=== PATIENT | female | born 1970 | race Caucasian/White ===

== ENCOUNTER 2017-07-18 19:18 | Emergency (ER) | payer OTHER ==
--- NOTE | 2017-07-18 21:37 | DR.GENAD ---
HPI - PCP Primary Care Physician: LULA THOMASON - Complaint/Symptoms Chief Complaint:: PT HAS HEADACHE AND HYPERTENSIVE; PT HAS CHECKED BP AT LEAST 3 TIMES TODAY AND DIASTOLIC HAS BEEN OVER 100. PT DESCRIBES HEADACHE POUNDING ON RIGHT SIDE TO BACK OF HEAD Self Treatment fo Chief Complaint: PT TAKES LISINOPRIL 25MG BID; PT HAS TAKEN BOTH DOSES TODAY; PT HAS TAKEN IBUPROFEN FOR HEADACHE - Nurses notes reviewed Nurses Notes Review: Yes - Source History Provided: Patient - Mode of Arrival Mode of Arrival: Ambulatory - Timing Onset of Chief Complaint: 07/18/17 PMH - PMH Past Medical History: Yes Past Medical History: Hypertension Past Surgical History: Yes Surgical History: Appendectomy, , Hysterectomy - Family History History of Family Medical Conditions: No Family Medical History: Diabetes Mellitus, Coronary Artery Disease, Heart Failure, Hypertension - Social History Alcohol Use: None Do you use any recreational Drugs:: No Lives With: Alone Lives Where: Home - infectious screening In the last 2 months have you had wt loss of >10#?: NO Have you had fever, night sweats or hemotysis?: No Have you traveled outside the country in the last 6 months?: No Isolation: Standard PE - Vital Signs Vitals: Temperature 98.4 F Pulse Rate [Left Radial] 72 Pulse Rate 75 Respiratory Rate 18 Blood Pressure [Left Arm] 139/83 Blood Pressure [Right Arm] 108/73 Blood Pressure 144/89 O2 Sat by Pulse Oximetry 100 ROR - Labs Reviewed Result Diagrams: 07/18/17 22:08 07/18/17 22:08 Laboratory: WBC 6.7 X10^3/uL (3.6-10.0) 07/18/17 22:08 RBC 4.16 X10^6/uL (3.5-5.4) 07/18/17 22:08 Hgb 12.1 g/dL (12.0-16.0) 07/18/17 22:08 Hct 34.9 % (36.0-47.0) L 07/18/17 22:08 MCV 83.8 fL (80.0-100.0) 07/18/17 22:08 MCH 29.0 pg (27.0-34.0) 07/18/17 22:08 MCHC 34.6 g/dL (33.0-35.0) 07/18/17 22:08 RDW 14.4 % (11.6-16.5) 07/18/17 22:08 Plt Count 168 X10^3/uL (150.0-450.0) 07/18/17 22:08 MPV 8.3 fL (7.4-11.0) 07/18/17 22:08 Neut % (Auto) 54.7 % (42.0-75.0) 07/18/17 22:08 Lymph % (Auto) 32.6 % (21.0-51.0) 07/18/17 22:08 Roane % (Auto) 7.0 % (0.0-13.0) 07/18/17 22:08 Eos % (Auto) 4.7 % (0.9-2.9) H 07/18/17 22:08 Baso % (Auto) 1.0 % (0.2-1.0) 07/18/17 22:08 Neut # (Auto) 3.6 x10^3/uL (2.2-4.8) 07/18/17 22:08 Lymph # (Auto) 2.2 X10^3/uL (1.3-2.9) 07/18/17 22:08 Roane # (Auto) 0.5 x10^3/uL (0.3-0.8) 07/18/17 22:08 Eos # (Auto) 0.3 x10^3/uL (0.0-0.2) H 07/18/17 22:08 Baso # (Auto) 0.1 X10^3/uL (0.0-0.1) 07/18/17 22:08 Absolute Nucleated RBC 0.0 /100WBC 07/18/17 22:08 Sodium 142 mmol/L (136-145) 07/18/17 22:08 Corrected Sodium TNP 07/18/17 22:08 Potassium 3.8 mmol/L (3.5-5.1) 07/18/17 22:08 Chloride 106 mmol/L (98-107) 07/18/17 22:08 Carbon Dioxide 29.1 mmol/L (21-32) 07/18/17 22:08 BUN 14 mg/dL (7-18) 07/18/17 22:08 Creatinine 0.84 mg/dL (0.55-1.02) 07/18/17 22:08 Est GFR (MDRD) Af Amer > 60 (>60) 07/18/17 22:08 Est GFR (MDRD) Non-Af > 60 (>60) 07/18/17 22:08 Glucose 106 mg/dL (65-99) H 07/18/17 22:08 Calcium 8.0 mg/dL (8.5-10.1) L 07/18/17 22:08 Corrected Calcium TNP 07/18/17 22:08 Total Bilirubin 0.40 mg/dL (0.2-1.0) 07/18/17 22:08 AST 10 Units/L (15-37) L 07/18/17 22:08 ALT 18 Units/L (12-78) 07/18/17 22:08 Alkaline Phosphatase 83 Units/L (46-116) 07/18/17 22:08 Total Protein 6.7 g/dL (6.4-8.2) 07/18/17 22:08 Albumin 3.5 g/dL (3.4-5.0) 07/18/17 22:08 Globulin 3.2 g/dL (2.5-4.5) 07/18/17 22:08 Albumin/Globulin Ratio 1.1 Ratio (1.1-2.1) 07/18/17 22:08 - Diagnosis Discharge Problem: Hypertension Qualifiers: Hypertension type: essential hypertension Qualified Code(s): I10 - Essential ( primary) hypertension Migraine Qualifiers: Migraine type: without aura Status migrainosus presence: without status migrainosus Intractability: intractable Qualified Code(s): G43.019 - Migraine without aura, intractable, without status migrainosus - Discharge Plan Condition: Stable - Follow ups/Referrals Follow ups/Referrals: LULA THOMASON [Primary Care Provider] - 3 days - Instructions Instructions: Migraine Headache, [id number], Hypertension, [id number] Additional Instructions: RETURN TO ED IF WORSE. CONTINUE MEDS AT HOME.
[2017-07-18] MEDS ORDERED: DUONEB 0.5 MG/3 MG ONE (21:52)
[2017-07-18] MEDS ORDERED: TORADOL 60 MG VIAL IM ONE (21:57)
[2017-07-18] MEDS ORDERED: TORADOL 60 MG VIAL ONE (22:09)
[2017-07-18 22:15] LABS: BASOPHILS # (AUTO) 0.1 X10^3/uL (0.0-0.1); EOSINOPHILS # (AUTO) 0.3 x10^3/uL (0.0-0.2); EOSINOPHILS % (AUTO) 4.7 % (0.9-2.9); HEMATOCRIT 34.9 % (36.0-47.0); HEMOGLOBIN 12.1 g/dL (12.0-16.0); LYMPHOCYTES # (AUTO) 2.2 X10^3/uL (1.3-2.9); LYMPHOCYTES % (AUTO) 32.6 % (21.0-51.0); MEAN CORPUSCULAR HGB CONC 34.6 g/dL (33.0-35.0); MEAN CORPUSCULAR VOLUME 83.8 fL (80.0-100.0); MEAN PLATELET VOLUME 8.3 fL (7.4-11.0); MONOCYTES # (AUTO) 0.5 x10^3/uL (0.3-0.8); NEUTROPHILS # (AUTO) 3.6 x10^3/uL (2.2-4.8); NEUTROPHILS % (AUTO) 54.7 % (42.0-75.0); PLATELET COUNT 168 X10^3/uL (150.0-450.0); RED BLOOD COUNT 4.16 X10^6/uL (3.5-5.4); RED CELL DISTRIBUTION WIDTH 14.4 % (11.6-16.5); WHITE BLOOD COUNT 6.7 X10^3/uL (3.6-10.0)
[2017-07-18 22:27] LABS: ALANINE AMINOTRANSFERASE 18 Units/L (12-78); ALBUMIN 3.5 g/dL (3.4-5.0); ALKALINE PHOSPHATASE 83 Units/L (46-116); ASPARTATE AMINO TRANSFERASE 10 Units/L (15-37); BLOOD UREA NITROGEN 14 mg/dL (7-18); CARBON DIOXIDE 29.1 mmol/L (21-32); CHLORIDE 106 mmol/L (98-107); CREATININE 0.84 mg/dL (0.55-1.02); SODIUM 142 mmol/L (136-145); TOTAL PROTEIN 6.7 g/dL (6.4-8.2); eGFR BLACK RACES > 60 (>60); eGFR NON BLACK RACES > 60 (>60)
--- NOTE | 2017-07-18 22:38 | CT ---
CT brain without contrast Indication: Headache Comparison: 05/28/2016 Technique: Multiple axial images of the brain were obtained from the skull base to the vertex without administra tion of IV contrast. Findings: No acute intraparenchymal hemorrhage or mass can be identified. No extra-axial fluid collections are seen. No alteration in the attenuation of the brain parenchyma can be identified to suggest acute o r subacute ischemic change. The ventricular system is symmetric and nondilated. The extracranial st ructures are grossly unremarkable. IMPRESSION: 1. No acute intracranial process is identified. Reported By:
[2017-07-18] MEDS ORDERED: CATAPRES TAB 0.1 MG PO ONE (23:18)
[2017-07-18] MEDS ORDERED: CATAPRES TAB 0.1 MG ONE (23:20)
[2017-07-18 23:24] VITALS: BP 139/82
== END 2017-07-18 23:39 | disposition home or self-care (01) ==
LOC: ER 19:32
DX: G43.019 Migraine without aura, intractable, without status migrainosus (principal); I10 Essential (primary) hypertension
CPT/HCPCS: 36415; 70450; 80053; 85025; 96372; 99282; 99283; J1885; J7620